=== PATIENT | male | born 1980 | race African-American/Black ===

== ENCOUNTER 2017-10-26 00:05 | Inpatient (IN) | payer SELFPAY ==
[2017-10-26 01:19] LABS: Troponin I 0.038 ng/mL (< 0.028)
[2017-10-26] MEDS ORDERED: cloNIDine 0.1 MG TAB ONE (01:34)
[2017-10-26 01:37] LABS: #Basophils 0.1 thou/uL (0.0-0.2); #Eosinphils 0.2 thou/uL (0.0-0.7); #Lymphocytes 2.5 thou/uL (1.20-3.40); #Monocytes 0.3 thou/uL (0.11-0.59); %Basophils 0.8 % (0.0-1.0); %Eosinophils 3.6 % (0.0-10.0); %Lymphocytes 35.1 % (21.0-51.0); %Monocytes 3.8 % (0.0-10.0); Hematocrit 40.5 % (42.0-52.0); Mean Platelet Volume 9.8 fL (7.4-10.4); Red Blood Cell (RBC) Count 4.49 mill/uL (4.70-6.10)
[2017-10-26] MEDS ORDERED: Nitroglycerin 2% Ointment 1 INCH/1 GM Packet ONE (02:43)
[2017-10-26 03:15] LABS: ALT (SGPT) 45 U/L (8-55); AST (SGOT) 33 U/L (5-34); Alkaline Phosphatase 50 U/L (40-150); Anion Gap 11 mmol/L (10-20); BUN (Urea Nitrogen) 27 mg/dL (8.9-20.6); Bilirubin, Total 0.9 mg/dL (0.2-1.2); Calc. Creatinine Clearance 0 mL/min (70-130); Calcium 9.4 mg/dL (7.8-10.44); Carbon Dioxide 24 mmol/L (22-29); Chloride 107 mmol/L (98-107); Estimated GFR-MDRD 62; Globulin 2.9 g/dL (2.4-3.5); Protein, Total 6.7 g/dL (6.0-8.3)
[2017-10-26 03:16] LABS: Acetaminophen Less than 6.0 mcg/mL (10.0-30.0); Salicylate Less than 8.0 mg/dL (15.0-30.0)
[2017-10-26] MEDS ORDERED: Furosemide 40 MG/4 ML VIAL ONE (03:34)
[2017-10-26] MEDS ORDERED: hydrALAZINE 20 MG/ML VIAL ONE (03:58)
[2017-10-26 04:26] LABS: Troponin I 0.038 ng/mL (< 0.028)
[2017-10-26] MEDS ORDERED: hydrALAZINE 20 MG/ML VIAL SLOW IVP PRN ×2 (04:57→15:16)
[2017-10-26] MEDS: Nitroglycerin 2% Ointment 1 INCH/1 GM Packet TOP SCH ×2 (05:36→12:43)
[2017-10-26] MEDS: Acetaminophen 500 MG TAB PO PRN ×2 (05:36→19:02)
[2017-10-26 07:51] LABS: Troponin I 0.049 ng/mL (< 0.028)
--- NOTE | 2017-10-26 08:35 | RAD ---
PA AND LATERAL VIEWS OF CHEST: Date: 10/26/17 HISTORY: Wheezing and dyspnea. FINDINGS: The heart size is normal. The lungs are expanded without focal areas of consolidation, pneumothorax, or pleural effusions. IMPRESSION: No radiographic evidence of acute cardiopulmonary process. POS: [facility]
[2017-10-26] MEDS: Furosemide 40 MG TAB PO SCH ×2 (09:00→14:35)
[2017-10-26] MEDS ORDERED: Aspirin 325 MG TAB PO SCH (09:00)
--- NOTE | 2017-10-26 11:39 | CON ---
DATE OF CONSULTATION: 10/26/2017 HISTORY OF PRESENT ILLNESS: The patient is a pleasant 36-year-old gentleman, who presented for evaluation of dyspnea. The patient has a previous history of hypertension. He states that he was in the hospital at [facility], approximately 6 months ago, with dyspnea and chest discomfort. He underwent a stress test that was apparently unremarkable. The patient states he had stopped taking his antihypertensive medications due to side effects. He presented to the emergency room with increasing dyspnea and also reported some midsternal chest discomfort. PAST MEDICAL HISTORY: hypertension. PAST SURGICAL HISTORY: None. SOCIAL HISTORY: The patient smokes a half pack per day. ALLERGIES: None. REVIEW OF SYSTEMS: Ten-point system otherwise unremarkable. MEDICATIONS: None. PHYSICAL EXAMINATION: GENERAL: A thin gentleman in mild distress with a blood pressure of 142/90. NECK: No jugular venous distention, no carotid bruits. LUNGS: Clear to auscultation. HEART: Regular rate and rhythm, normal S1 and S2 with no murmurs. ABDOMEN: Nondistended. EXTREMITIES: Show no edema. SKIN: Warm and dry. NEUROLOGIC: Exam is nonfocal. VASCULAR: Radial pulses are 2+. LABORATORY RESULTS: Sodium 138, potassium 4.2, chloride 107, bicarbonate 24, BUN 27, creatinine is 1.53. Troponin was 0.038. BNP is 235. White blood cell count is 7.0, hemoglobin 13.5, hematocrit 40.5, and platelets 127. EKG revealed normal sinus rhythm, left ventricular hypertrophy with an ST-T wave abnormality suggestive of ischemia. IMPRESSION: 1. Hypertensive crisis. 2. Chest pain. 3. Tobacco abuse. 4. Renal insufficiency. This gentleman presented with markedly elevated blood pressures over 200. He has discontinued his antihypertensive medications. The patient will undergo a repeat stress test to make sure there is no evidence of ischemia. I would start the patient on a low dose of nifedipine. I explained the life- threatening consequences of continued noncompliance with his medications. I have highly recommended he discontinue smoking. We will follow this patient with you through his hospitalization. GREGORY
[2017-10-26] MEDS ORDERED: Amlodipine 10 MG TAB PO SCH (13:00)
[2017-10-26] MEDS ORDERED: Lisinopril 20 MG TAB PO SCH (13:00)
--- NOTE | 2017-10-26 13:26 | NM ---
CARDIAC SPECT: CLINICAL HISTORY: 36-year-old male with shortness of breath, hypertension, and smoker. TECHNIQUE: A myocardial perfusion scan was performed using the single isotope one day protocol with technetium-9 9m sestamibi. 9 mCi were injected intravenously for the rest exam followed by 29 mCi for the stress e xam. Pharmacologic stress with Lexiscan was monitored and interpreted by Dr. Murillo. FINDINGS: Homogeneous tracer distribution is seen in the myocardial segments on stress and rest images without fixed or reversible defects. GATED SPECT LVEF: 41%. WALL MOTION EXAM: Global hypokinesis. IMPRESSION: No evidence of reversible ischemia. POS: [facility]
[2017-10-26] MEDS ORDERED: NIFEdipine XL 30 MG TAB PO SCH ×4 (13:30→21:00)
--- NOTE | 2017-10-26 13:34 | HP ---
REASON FOR ADMISSION/CHIEF COMPLAINT: Shortness of breath. HISTORY OF PRESENT ILLNESS: Ms. Gann is a 36-year-old male with past medical h istory of hypertension, not taking medication for 2 months, came because of shortness of breath which is getting worse for the last 1 month and the patient decided to come to the hospital. He did not h ave any chest pain before he came, no nausea or vomiting. No headache, no dizziness. It looks like he is off of BP medications since June. This is more than 2 months anyway. In the ER, the patient was evaluated and found to have markedly elevated blood pressure of 204/155. The patient received h ydralazine IV push as well as clonidine p.o. and put on nitro paste. He also received Lasix and admi tted for further management. After admission, the patient developed an episode of chest pain with di aphoresis which lasted only 2-3 minutes. The patient does not have any chest pain right now. He dev eloped sharp pain in the retrosternal area. PAST MEDICAL HISTORY: Hypertension, not on medications for 4-5 months. PAST SURGICAL HISTORY: Nothing significant. CURRENT MEDICATIONS: None. FAMILY HISTORY: Nothing of interest. SOCIAL HISTORY: Patient lives with family. The patient smokes half pack a day for a few years. No history of alcohol intake. REVIEW OF SYSTEMS: Unremarkable except for shortness of breath. PHYSICAL EXAMINATION: GENERAL: The patient is alert, awake, oriented x3. VITAL SIGNS: Temperature 98, pulse 70, respirations 20, blood pressure 168/108. HEENT: Head is normocephalic, atraumatic. Pupils equal and reactive to light. Nasopharynx is pink and moist. NECK: Supple. No JVD. LUNGS: Air entry present, no rales, no rhonchi. CARDIAC: S1, S2 regular. ABDOMEN: Soft, no distention, no tenderness. No organomegaly. Normal bowel sounds. EXTREMITIES: No edema. NEUROLOGIC: No focal deficit. LABORATORY AND X-RAY FINDINGS: CBC shows WBC 7, hemoglobin 13, hematocrit 40, platelets 127. Metabo lic panel shows sodium 138, potassium 4.8, chloride 106, CO2 24, urea nitrogen 27, creatinine 1.3, gl ucose 106. CK-MB 3.1, troponin I 0.038. BNP 235. Chest x-ray negative. EKG shows normal sinus rhythm, no acute ST-T wave changes seen. ASSESSMENT: 1. Shortness of breath and chest pain, rule out myocardial infarction. 2. Hypertensive emergency. 3. Noncompliant with medications. 4. Tobacco abuse. 5. Mild renal insufficiency. PLAN: 1. Vital signs q.4 hours. 2. Activity: As tolerated. 3. Allergies: NKDA. 4. Diet: Cardiac. 5. We will obtain Cardiolite stress test. 6. Start Procardia-XL. 7. Roll [employer]cer Machine consult.
[2017-10-26] MEDS ORDERED: Regadenoson 0.4 MG/5 ML SYRINGE ONE (16:18)
[2017-10-26] MEDS ORDERED: NIFEdipine XL 60 MG TAB PO SCH (21:00)
[2017-10-27] MEDS ORDERED: Lisinopril 20 MG TAB PO SCH (09:00)
[2017-10-27] MEDS ORDERED: Amlodipine 10 MG TAB PO SCH (09:00)
[2017-10-27] MEDS ORDERED: NIFEdipine XL 30 MG TAB PO SCH (09:00)
[2017-10-27 09:11] VITALS: TEMP 98.1
[2017-10-27 10:55] VITALS: BP 168/112
--- NOTE | 2017-10-29 12:20 | EKG ---
Test Reason : Blood Pressure : / mmHG Vent. Rate : 075 BPM Atrial Rate : 075 BPM P-R Int : 158 ms QRS Dur : 096 ms QT Int : 430 ms P-R-T Axes : 037 027 -67 degrees QTc Int : 480 ms Normal sinus rhythm Voltage criteria for left ventricular hypertrophy ST elevation, consider early repolarization, pericarditis, or injury T wave abnormality, consider inferior ischemia Prolonged QT Abnormal ECG Confirmed by GONZÁLEZ MARROQUIN ([id number]) on 10/29/2017 12:19:50 PM Referred By: ANURAG Confirmed By:GONZÁLEZ MARROQUIN
--- NOTE | 2017-10-30 12:48 | DIS ---
ADMITTING DIAGNOSES: 1. Hypertensive emergency. 2. Shortness of breath, chest pain, rule out myocardial infarction. 3. Noncompliance with medication. 4. Tobacco abuse. 5. Mild renal insufficiency. FINAL DIAGNOSES: 1. Shortness of breath and chest pain, improved. No evidence of acute myocardial infarction. 2. Hypertensive emergency, improved. 3. Noncompliance with medication. 4. Tobacco abuse. 5. Mild renal insufficiency. BRIEF SUMMARY OF HOSPITAL COURSE: Mr. Gann is a 36-year-old male admitted mariel use of markedly elevated blood pressure and chest pain and shortness of breath. The patient has not been taking medications for about 4-5 months prior to coming to the hospital. His blood pressure [facility] was very high, but with the addition of medications his pressure came down. Initially he says he could not take lisinopril or Norvasc so he was started on Procardia. Initially he was started on 30 mg 3 times daily and then changed to 60 b.i.d. His blood pressure initially was 160/112, it late r came down. The patient was seen by technology education instructor, he was seen by Dr. Murillo. He suggested to do a stress test in view of his chest pain. Stress test was done and it revealed no evidence of acute m yocardial, no evidence of reversible ischemia, but it showed a decreased EF of 41% so an echocardiogr am was done. Echocardiogram showed normal LV function with ejection fraction of 55%. The patient di d not want to stay in the hospital regarding his blood pressure control. He wanted to sign out AMA, but technology education instructor feels the patient can be discharged on the medications and to follow up. So the pat ient is discharged. At the time of discharge, he was stable. His vital signs were stable. Lungs c lear to auscultation. Heart sounds regular. Abdomen soft, nontender. Bowel sounds present. DISCHARGE MEDICATIONS: Include nifedipine, Procardia-XL 60 mg b.i.d. FOLLOWUP: The patient needs to come for followup next week regarding his blood pressure.
== END 2017-10-27 12:01 | disposition home or self-care (01) | DRG 305 ==
LOC: ERS 00:05 → ERHOLD 03:23 → 2NO 04:47
PROVIDERS: ADMIT Internal Medicine; ATTEND Internal Medicine
DX: I16.9 Hypertensive crisis, unspecified (principal); F17.210 Nicotine dependence, cigarettes, uncomplicated; I10 Essential (primary) hypertension; Z91.14 Patient's other noncompliance with medication regimen; N28.9 Disorder of kidney and ureter, unspecified; R07.9 Chest pain, unspecified
CPT/HCPCS: 36415; 71020; 78452; 80053; 80307; 82553; 83690; 83880; 84484; 85025; 93005; 93010; 93017; 93306; 96374; 96375; 99406; A9500; J0360; J1940; J2785

== ENCOUNTER 2018-03-13 09:34 | Emergency (ER) | payer SELFPAY ==
[2018-03-13 10:45] LABS: #Eosinphils 0.1 thou/uL (0.0-0.7); #Lymphocytes 0.7 thou/uL (1.20-3.40); #Monocytes 0.3 thou/uL (0.11-0.59); #Neutrophils 3.8 thou/uL (1.40-6.50); %Basophils 0.2 % (0.0-1.0); %Eosinophils 2.2 % (0.0-10.0); %Lymphocytes 14.8 % (21.0-51.0); %Monocytes 5.7 % (0.0-10.0); %Neutrophils 77.1 % (42.0-75.0); Hemoglobin 12.5 g/dL (14.0-18.0); Mean Corpuscular HGB CONC 33.4 g/dL (32.0-36.0); Mean Corpuscular Hemoglobin 29.2 pg (27.0-31.0); Mean Corpuscular Volume 87.4 fl (80.0-94.0); Mean Platelet Volume 8.2 fL (7.4-10.4); Platelet Count 143 thou/uL (130-400); RBC Distribution Width 11.5 % (11.5-14.5)
[2018-03-13 11:05] LABS: ALT (SGPT) 14 U/L (8-55); AST (SGOT) 15 U/L (5-34); Albumin 3.6 g/dL (3.5-5.0); Alkaline Phosphatase 54 U/L (40-150); Anion Gap 11 mmol/L (10-20); BUN (Urea Nitrogen) 14 mg/dL (8.9-20.6); Bilirubin, Total 1.2 mg/dL (0.2-1.2); Calc. Creatinine Clearance 0 mL/min (70-130); Calcium 8.4 mg/dL (7.8-10.44); Carbon Dioxide 24 mmol/L (22-29); Chloride 106 mmol/L (98-107); Estimated GFR-MDRD 67; Globulin 2.5 g/dL (2.4-3.5); Glucose 91 mg/dL (70-105); Lipase 21 U/L (8-78); Potassium 3.5 mmol/L (3.5-5.1); Protein, Total 6.1 g/dL (6.0-8.3); Sodium 137 mmol/L (136-145)
[2018-03-13] MEDS ORDERED: Ondansetron ODT 4 MG TAB ONE (11:25)
--- NOTE | 2018-03-13 12:00 | CT ---
ABDOMEN AND PELVIS CT WITH CONTRAST: Date: 03/13/18 INDICATION: Abdominal pain. FINDINGS: Solid abdominal organs are nonacute in appearance. The bowel is incompletely evaluated without enteri c contrast. No pneumoperitoneum or portable vein gas. Mild vascular calcifications seen. Aorta is nor mal in caliber. Borderline size nonspecific bilateral inguinal lymph nodes are present. There are als o borderline sized mesenteric lymph nodes. No acute osseous pathology. IMPRESSION: Limited evaluation of bowel without enteric contrast. Otherwise, no acute process is visualized. POS: [facility]
[2018-03-13 12:12] LABS: Bilirubin Negative (Negative); Blood, Urine Negative (Negative); Clarity CLEAR (Clear); Glucose, Urine (Dipstick) Negative (Negative); Leukocyte Negative (Negative); Nitrite Negative (Negative); Protein, Urine (Dipstick) Negative (Neg-Trace); Specific Gravity, Urine 1.045 (1.002-1.036); pH, Urine 5.5 (5.0-9.0)
[2018-03-13] MEDS ORDERED: cloNIDine 0.1 MG TAB ONE (12:17)
[2018-03-13] MEDS ORDERED: ISOVUE-370 76%-LOCM 1 ML ONE (15:13)
== END 2018-03-13 12:43 | disposition home or self-care (01) ==
LOC: ERS 09:34
DX: R10.32 Left lower quadrant pain (principal); R19.7 Diarrhea, unspecified; I10 Essential (primary) hypertension; F17.210 Nicotine dependence, cigarettes, uncomplicated
CPT/HCPCS: 36415; 74177; 80053; 81003; 83690; 85025; 96360; 96372; Q0162

== ENCOUNTER 2018-08-13 17:42 | Emergency (ER) | payer SELFPAY ==
[2018-08-13] MEDS ORDERED: NIFEdipine 10 MG CAP PO SCH (19:45)
[2018-08-13] MEDS ORDERED: Carvedilol 25 MG TAB PO SCH (20:00)
--- NOTE | 2018-08-13 20:15 | RAD ---
LUMBAR SPINE THREE VIEWS: 08/13/18 HISTORY: Low back pain. FINDINGS/IMPRESSION: No fracture, subluxation or bony destruction is identified. POS: [facility]
--- NOTE | 2018-08-13 20:15 | RAD ---
THORACIC SPINE THREE VIEWS: 08/13/18 HISTORY: Back pain. FINDINGS/IMPRESSION: No fracture, subluxation or bony destruction is seen. POS: [facility]
--- NOTE | 2018-08-13 20:17 | RAD ---
LEFT ELBOW FOUR VIEWS 08/13/18 HISTORY: Fall, left elbow pain. FINDINGS/IMPRESSION: No acute fracture or dislocation is seen. POS: [facility]
== END 2018-08-13 20:52 | disposition home or self-care (01) ==
LOC: ERS 17:42
DX: S50.02XA Contusion of left elbow, initial encounter (principal); M62.838 Other muscle spasm; Z87.891 Personal history of nicotine dependence; Z79.891 Long term (current) use of opiate analgesic; Z79.899 Other long term (current) drug therapy; V43.52XA Car driver injured in collision with other type car in traffic accident, initial encounter
CPT/HCPCS: 72072; 72100; 99283

== ENCOUNTER 2018-12-29 22:39 | Emergency (ER) | payer SELFPAY ==
[2018-12-29] MEDS ORDERED: Ketorolac Tromethamine 30 MG/ML VIAL ONE (23:43)
[2018-12-29] MEDS ORDERED: Bupivacaine 0.25% 10 ML VIAL ONE (23:43)
== END 2018-12-30 00:20 | disposition home or self-care (01) ==
LOC: ERS 22:39
DX: K02.9 Dental caries, unspecified (principal); I10 Essential (primary) hypertension; Z87.891 Personal history of nicotine dependence; Z79.891 Long term (current) use of opiate analgesic; Z79.899 Other long term (current) drug therapy
CPT/HCPCS: 64400; 96372; J1885; S0020

== ENCOUNTER 2020-06-05 08:24 | Emergency (ER) | payer SELFPAY ==
[2020-06-05] MEDS ORDERED: Bupivacaine 0.5% 10 ML VIAL ONE (09:57)
[2020-06-05] MEDS ORDERED: Lidocaine 1% (PF) 30 ML VIAL ONE (09:59)
[2020-06-05] MEDS ORDERED: Lidocaine 1% w/Epinephrine 1:100K 20 ML VIAL ONE (10:02)
== END 2020-06-05 10:22 | disposition home or self-care (01) ==
LOC: ERS 08:24
DX: K02.9 Dental caries, unspecified (principal); I10 Essential (primary) hypertension; Z87.891 Personal history of nicotine dependence
CPT/HCPCS: 99282; J2001; J3490

== ENCOUNTER 2021-04-06 07:57 | Emergency (ER) | payer BC, OTHER ==
[2021-04-06] MEDS ORDERED: Dexamethasone 10 MG/ML VIAL ONE (08:52)
== END 2021-04-06 09:28 | disposition home or self-care (01) ==
LOC: ERS 07:57
DX: L30.9 Dermatitis, unspecified (principal); I10 Essential (primary) hypertension; Z87.891 Personal history of nicotine dependence; Z79.899 Other long term (current) drug therapy
CPT/HCPCS: 99282; J1100

== ENCOUNTER 2021-04-07 13:16 | Emergency (ER) | payer BC, OTHER ==
[2021-04-07 14:17] LABS: #Eosinphils 0.1 thou/uL (0.0-0.7); #Monocytes 0.8 thou/uL (0.11-0.59); #Neutrophils 12.5 thou/uL (1.40-6.50); %Basophils 0.1 % (0.0-1.0); %Eosinophils 0.3 % (0.0-10.0); %Lymphocytes 13.2 % (21.0-51.0); %Monocytes 5.2 % (0.0-10.0); %Neutrophils 81.2 % (42.0-75.0); Hemoglobin 13.1 g/dL (14.0-18.0); Mean Corpuscular HGB CONC 33.5 g/dL (32.0-36.0); Mean Corpuscular Hemoglobin 29.2 pg (27.0-31.0); Mean Corpuscular Volume 87.4 fL (78.0-98.0); Mean Platelet Volume 9.4 fL (7.4-10.4); Platelet Count 190 thou/uL (130-400); RBC Distribution Width 11.8 % (11.5-14.5); Red Blood Cell (RBC) Count 4.48 mill/uL (4.70-6.10); White Blood Cell (WBC) Count 15.4 thou/uL (4.8-10.8)
[2021-04-07 14:43] LABS: ALT (SGPT) 31 U/L (8-55); AST (SGOT) 23 U/L (5-34); Albumin 4.4 g/dL (3.5-5.0); Alkaline Phosphatase 49 U/L (40-110); Anion Gap 12 mmol/L (10-20); BUN (Urea Nitrogen) 26 mg/dL (8.9-20.6); Bilirubin, Total 0.9 mg/dL (0.2-1.2); Calc. Creatinine Clearance 0 mL/min (70-130); Calcium 9.6 mg/dL (7.8-10.44); Carbon Dioxide 25 mmol/L (22-29); Chloride 103 mmol/L (98-107); Glucose 117 mg/dL (70-105); Lipase 34 U/L (8-78); Potassium 3.5 mmol/L (3.5-5.1); Protein, Total 7.4 g/dL (6.0-8.3); Sodium 136 mmol/L (136-145)
[2021-04-07] MEDS ORDERED: Famotidine 20 MG TAB ONE (14:51)
[2021-04-07] MEDS ORDERED: Mag-Al 1200 mg/1200 mg/30 ML UDCUP ONE (14:51)
[2021-04-07] MEDS ORDERED: Ondansetron ODT 8 MG TAB ONE (14:51)
[2021-04-07] MEDS ORDERED: Lidocaine Viscous Sol 2% 15 ml UD Cup ONE (14:51)
== END 2021-04-07 15:55 | disposition home or self-care (01) ==
LOC: ERS 13:16
DX: K29.70 Gastritis, unspecified, without bleeding (principal); K21.9 Gastro-esophageal reflux disease without esophagitis; I10 Essential (primary) hypertension; Z79.899 Other long term (current) drug therapy
CPT/HCPCS: 36415; 80053; 83690; 84484; 85025; 93005; Q0162

== ENCOUNTER 2021-06-03 08:50 | Emergency (ER) | payer BC, OTHER ==
[2021-06-03] MEDS ORDERED: Ketorolac Tromethamine 30 MG/ML VIAL ONE (09:07)
== END 2021-06-03 09:22 | disposition home or self-care (01) ==
LOC: ERS 08:50
DX: S39.012A Strain of muscle, fascia and tendon of lower back, initial encounter (principal); I10 Essential (primary) hypertension; Z87.891 Personal history of nicotine dependence; Z79.899 Other long term (current) drug therapy; X50.1XXA Overexertion from prolonged static or awkward postures, initial encounter
CPT/HCPCS: 96372; 99283; J1885

== ENCOUNTER 2021-07-14 16:46 | Emergency (ER) | payer BC, OTHER ==
[2021-07-14] MEDS ORDERED: Ketorolac Tromethamine 30 MG/ML VIAL ONE (19:30)
== END 2021-07-14 19:57 | disposition home or self-care (01) ==
LOC: ERS 16:46
DX: M25.562 Pain in left knee (principal); I10 Essential (primary) hypertension; Z87.891 Personal history of nicotine dependence; Z79.899 Other long term (current) drug therapy
CPT/HCPCS: 96372; J1885

== ENCOUNTER 2021-10-05 14:28 | Emergency (ER) | payer BC, SELFPAY ==
[2021-10-05 21:42] LABS: SARS-CoV-2 PCR by NAA Not Detected (NotDetected)
== END 2021-10-05 18:05 | disposition home or self-care (01) ==
LOC: ERS 14:28
DX: J02.9 Acute pharyngitis, unspecified (principal); Z20.822 Contact with and (suspected) exposure to COVID-19; I10 Essential (primary) hypertension; Z87.891 Personal history of nicotine dependence; Z79.899 Other long term (current) drug therapy
CPT/HCPCS: 71045; 87081; 87430; U0003; U0005

== ENCOUNTER 2022-07-10 13:16 | Emergency (ER) | payer BC, OTHER | END 2022-07-10 16:10 | disposition home or self-care (01) | LOC: ERS 13:16 | DX: L23.7 Allergic contact dermatitis due to plants, except food (principal) | CPT/HCPCS: 99282 ==

== ENCOUNTER 2024-05-13 18:12 | Emergency (ER) | payer OTHER, SELFPAY ==
[2024-05-13] MEDS ORDERED: Ibuprofen 800 MG TAB ONE (19:55)
[2024-05-13] MEDS ORDERED: Boostrix 0.5 ML (Tdap) VIAL (>/=7 yrs of age) ONE (19:55)
== END 2024-05-13 21:14 | disposition home or self-care (01) ==
LOC: ERS 18:12
DX: M26.602 Left temporomandibular joint disorder, unspecified (principal); S40.812D Abrasion of left upper arm, subsequent encounter; I10 Essential (primary) hypertension; Z87.891 Personal history of nicotine dependence; Z23 Encounter for immunization; W26.8XXD Contact with other sharp object(s), not elsewhere classified, subsequent encounter
CPT/HCPCS: 90471; 90715